=== PATIENT | female | born 1980 | race Caucasian/White ===

== ENCOUNTER 2021-05-09 08:47 | Outpatient (CLI) | payer OTHER, SELFPAY ==
--- NOTE | 2021-05-09 09:08 | ECG_ITS ---
Measurements Intervals [place] Rate: 58 P: 9 UT: 153 QRS: 12 QRSD: 87 T: 6 QT: 410 QTc: 404 Interpretive Statements SINUS BRADYCARDIA LOW QRS VOLTAGE IN PRECORDIAL LEADS BORDERLINE ECG Electronically Signed On 05-09-2021 13:02:19 SLAB STRIPPER by Moy Estrada D.O.
== END 2021-05-09 08:48 | disposition home or self-care (01) ==
PROVIDERS: PCP Family Medicine; Visit Provider Family Medicine
DX: R00.1 Bradycardia, unspecified (principal); E66.9 Obesity, unspecified
CPT/HCPCS: 93005

== ENCOUNTER 2022-06-26 08:22 | Outpatient (CLI) | payer OTHER, SELFPAY ==
[2022-06-26 19:34] LABS: Hematocrit 39.8 % (37.0-47.0); Hemoglobin 12.9 g/dL (12.0-15.0); Mean Corpuscular HGB Conc 32.4 g/dl (32-36); Mean Corpuscular Hemoglobin 31.1 pg (26-34); Mean Corpuscular Volume 95.9 fl (80-100); Mean Platelet Volume 9.3 fl (7.4-10.4); Platelet Count Result 349 k/mm3 (150-375); Red Blood Count 4.15 M/mm3 (4.2-5.4); Red Cell Distribution Width 13.4 % (11.5-14.5); White Blood Count 5.8 K/mm3 (4.5-10.0)
[2022-06-26 20:40] LABS: Alanine Aminotransferase 24 U/L (6-35); Albumin Level 4.3 g/dL (3.5-5.1); Alkaline Phosphatase 53 U/L (38-126); Anion Gap 6 mmol/L (8-16); Aspartate Amino Transferase 34 U/L (14-36); Bilirubin,Total 0.6 mg/dL (0.2-1.3); Blood Urea Nitrogen 12 mg/dL (7-17); Calcium 8.8 mg/dL (8.4-10.2); Carbon Dioxide 28 mmol/L (22-30); Chloride 105 mmol/L (98-107); Cholesterol 150 mg/dL (0-200); Estimated Glomerular Filt Rate > 60; Glucose 94 mg/dL (65-110); HDL Direct 36 mg/dL; Potassium 3.7 mmol/L (3.4-5.0); Sodium 139 mmol/L (137-145); Triglycerides 83 mg/dL (<150)
[2022-06-26 20:51] LABS: LDL Cholesterol Direct 87 mg/dL
== END 2022-06-26 08:23 | disposition home or self-care (01) ==
LOC: ANHBWCLAB 08:22
PROVIDERS: PCP Family Medicine; Visit Provider Family Medicine
DX: Z00.00 Encounter for general adult medical examination without abnormal findings (principal)
CPT/HCPCS: 36415; 80053; 80061; 85027

== ENCOUNTER → 2023-03-24 10:11 | Outpatient (CLI) | payer OTHER, SELFPAY ==
--- NOTE | ~2023-03-24 | MM_ITS ---
EXAMINATION: MM screening jose BI w john HISTORY: Screening mammogram, history of reduction mammoplasty TECHNIQUE: Craniocaudal and mediolateral oblique 3-D tomosynthesis images were obtained and synthetic 2-D images were generated. CAD analysis was submitted and interpreted. COMPARISON: None, baseline BREAST PARENCHYMAL COMPOSITION: The breasts are almost entirely fatty. FINDINGS: RIGHT BREAST: Asymmetry is present in the posterior third lower inner breast 10 cm from the nipple on craniocaudal view. LEFT BREAST: No suspicious mass, calcification, or architectural distortion are identified to suggest malignancy. IMPRESSION: 1. Right breast asymmetry on the craniocaudal view which could be related to prior reduction mammopla sty. 2. Additional mammographic views and possible breast ultrasound are recommended to evaluate the right breast asymmetry and establish a baseline given that this is the first mammographic examination. BI-RADS Category 0: Incomplete: Needs additional imaging evaluation. Reviewed, dictated and finalized at location A. 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 Right breast asymmetry on the craniocaudal view which could be related to pr ior reduction mammoplasty. 2. Additional mammographic views and possible breast ultrasound are recommended to evaluate the right breast asymmetry and establish a baseline given that thi s is the first mammographic examination. BI-RADS Category 0: Incomplete: Needs additional imaging evaluation.
== END ==
PROVIDERS: PCP Family Medicine; Visit Provider Family Medicine
DX: Z12.31 Encounter for screening mammogram for malignant neoplasm of breast (principal); R92.8 Other abnormal and inconclusive findings on diagnostic imaging of breast
CPT/HCPCS: 77063; 77067

== ENCOUNTER 2023-12-31 07:43 | Outpatient (CLI) | payer OTHER, SELFPAY ==
--- NOTE | ~2023-12-31 | MMUS_ITS ---
EXAMINATION: MM diagnostic jose RT w john, US breast RT limited HISTORY: Follow-up right breast asymmetry TECHNIQUE: Additional 3-D tomosynthesis images of the right breast were performed and synthetic 2-D i mages were generated. CAD analysis was submitted and interpreted. High resolution Limited right breas t ultrasound was performed. COMPARISON: 03/24/2023 BREAST PARENCHYMAL COMPOSITION: Not Dense: The breasts are almost entirely fatty. FINDINGS: MAMMOGRAPHIC FINDINGS: Asymmetry medially in the right breast on CC view likely related to previous breast reduction surgery . No discrete mass or suspicious calcifications. No corresponding abnormality on medial lateral image . ULTRASOUND: Limited right breast ultrasound: At 4:00, 9 cm from the nipple there is a benign appearing 9 mm paral lel oriented encapsulated mass without posterior features or internal vascularity, consistent with a lipoma. IMPRESSION: 1. No evidence for malignancy in the right breast. 2. Routine yearly screening mammogram and regular clinical breast examination are recommended. BI-RADS Category 2: Benign finding(s). Reviewed, dictated and finalized at location B. IMPRESSION: 1. No evidence for malignancy in the right breast. 2. Routine yearly screening mammogram and regular clinical breast examination a re recommended. BI-RADS Category 2: Benign finding(s).
== END 2023-12-31 07:44 | disposition home or self-care (01) ==
LOC: MICIMG 07:44
PROVIDERS: PCP Family Medicine; Visit Provider Family Medicine
DX: N64.89 Other specified disorders of breast (principal)
CPT/HCPCS: 76642; 77061; 77065; G0279

== ENCOUNTER 2024-06-05 06:31 | Outpatient (CLI) | payer OTHER, SELFPAY ==
[2024-06-05 20:08] LABS: Hematocrit 40.2 % (37.0-47.0); Hemoglobin 12.6 g/dL (12.0-15.0); Mean Corpuscular HGB Conc 31.3 g/dl (32-36); Mean Corpuscular Hemoglobin 30.7 pg (26-34); Platelet Count Result 396 k/mm3 (150-375); Red Cell Distribution Width 13.8 % (11.5-14.5); White Blood Count 5.9 K/mm3 (4.5-10.0)
[2024-06-05 20:18] LABS: Alanine Aminotransferase 28 U/L (6-35); Albumin Level 4.1 g/dL (3.5-5.1); Alkaline Phosphatase 63 U/L (38-126); Anion Gap 7 mmol/L (4-12); Aspartate Amino Transferase 80 U/L (14-36); Bilirubin,Total 0.4 mg/dL (0.2-1.3); Blood Urea Nitrogen 12 mg/dL (7-17); Carbon Dioxide 29 mmol/L (22-30); Chloride 104 mmol/L (98-107); Cholesterol 148 mg/dL (0-200); Estimated Glomerular Filt Rate > 60; Glucose 81 mg/dL (65-110); HDL Direct 44 mg/dL; Potassium 4.2 mmol/L (3.4-5.0); Sodium 140 mmol/L (137-145); Triglycerides 72 mg/dL (<150)
[2024-06-05 20:29] LABS: LDL Cholesterol Direct 76 mg/dL
[2024-06-05 20:48] LABS: Free T4 Free Thyroxine 0.84 ng/dL (0.78-2.19)
== END 2024-06-05 06:32 | disposition home or self-care (01) ==
LOC: ANHBWCLAB 06:31
PROVIDERS: PCP Nurse Practitioner Adult Health; Visit Provider Nurse Practitioner Adult Health
DX: Z13.9 Encounter for screening, unspecified (principal)
CPT/HCPCS: 36415; 80053; 80061; 83036; 84439; 84443; 85027

== ENCOUNTER 2024-07-10 06:35 | Outpatient (CLI) | payer OTHER, SELFPAY ==
[2024-07-10 19:53] LABS: Alanine Aminotransferase 29 U/L (6-35); Albumin Level 3.9 g/dL (3.5-5.1); Alkaline Phosphatase 57 U/L (38-126); Aspartate Amino Transferase 57 U/L (14-36); Bilirubin,Total 0.5 mg/dL (0.2-1.3)
== END 2024-07-10 06:36 | disposition home or self-care (01) ==
LOC: ANHBWCLAB 06:37
PROVIDERS: PCP Nurse Practitioner Adult Health; Visit Provider Nurse Practitioner Adult Health
DX: R74.8 Abnormal levels of other serum enzymes (principal)
CPT/HCPCS: 36415; 80076

== ENCOUNTER 2024-11-16 13:01 | Emergency (ER) | payer OTHER, SELFPAY ==
--- OUTSIDE RECORDS SUMMARY | 2019-04-14 08:00 | XMS_ITS | Continuity of Care Document ---
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 Referring Provider: Physician Screen. Family [...]
[2024-11-16 13:07] VITALS: BP 124/70; PULSE 123; RESP 24; TEMP 36.7; O2SAT 100
--- NOTE | 2024-11-16 13:10 | ED.ABDPAIN ---
HPI - Abdominal Pain General Chief Complaint: Abdominal Pain Stated Complaint: abdominal pain Time Seen by Provider: 11/16/24 13:11 Source: patient and RN notes reviewed Mode of arrival: ambulatory Limitations: no limitations History of Present Illness HPI narrative: 44 y/o female presented for c/o lower abdominal pain, onset 0430. Reports a hard stool, then a diarrhea stool, then just blood over the last hour. Says she has a constant dull pain, with intermittent 'knife stabbing' pains rating 10/10. Endorses nausea. Denies vomiting. Took pepto at 1100. Hx hysterectomy. Related Data Allergies Allergy/AdvReac Type Severity Reaction Status Date / Time No Known Allergies Allergy Verified 11/16/24 13:12 Review of Systems Review of Systems: CONSTITUTIONAL: Denies body aches, fever, chills ENT: Denies rhinorrhea, congestion CARDIOVASCULAR: Denies chest pain, palpitations, or edema. RESPIRATORY: Denies cough or dyspnea. GASTROINTESTINAL: Endorses abdominal pain, nausea, diarrhea, hematochezia GENITOURINARY: Denies dysuria, hematuria, or CVA tenderness. SKIN: Denies rash MUSCULOSKELETAL: Denies back pain, joint pain, or myalgia. NEUROLOGIC: Denies headache, numbness, tingling, or weakness. All systems reviewed & are unremarkable except as noted in HPI and below PMFSH Past Medical History Medical History Allergies Anxiety H/O migraine Surgical History Surgical History H/O bilateral breast reduction surgery H/O section History of nasal surgery History of partial hysterectomy Family History Family History Father Diabetes mellitus Skin cancer Alcohol abuse Mother Asthma Sibling Asthma Anxiety Depression Grandparent Brain cancer Lung cancer Grandparent Diabetes mellitus Social History Social History Smoking status: Never smoker Alcohol intake: current Drinks per week: 2 Substance use type: does not use Lack of Transportation: No Lack of Food: Never True Current Housing: I Have Housing Concerned About Future Housing: No Difficulty Paying Gas/Electric Bills: No Difficulty Paying for Meds: No Currently Unemployed: No Education: Master's Degree or Higher Difficulty w/ Childcare or Family Care: No Living arrangements: with family 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 Please see nursing chart for further information. There is no relevant family history pertinent to the presenting complaint Exam Narrative: GENERAL: appears in pain ENT: Mucous membranes pink and moist. CHEST: No respiratory distress. Clear to auscultation. HEART: Regular rate and rhythm. No murmur appreciated. Normal peripheral pulses. ABDOMEN: abd soft, nondistended, normal active bowel sounds. Tender lower abdomen with guarding, no rebound tenderness, asymmetry SKIN: Warm, dry, no rash. Capillary refill normal. NEURO: No focal deficits. Alert and oriented x3. PSYCH: Normal affect. Course Course Emergency Course: Patient is aware of diagnosis, understands and agrees to treatment plan. Anticipatory guidance given. Patient agrees to follow-up as directed and is aware of reasons to seek care at the emergency department. Portions of this record may have been created with voice recognition software Level of Care: Express Care Visit Transfer Transfered to: [place] Transportation: Other ( private vehicle) Transfer rationale: Pt is agreeable to transfer. Requests transfer to [facility] via private vehicle. Risks of transportation reviewed with pt including injury, worsening of condition and . v/u. will be driving pt; Report called to hospital, spoke with Dr Gunn, accepting physician. Pt is in stable condition at time of transfer. Advised to remain NPO and go directly to the hospital. MDM - Abdominal Pain MDM Narrative Medical decision making narrative: Patient with reports of severe abdominal pain and blood in the stool today. Advised ER transfer. Differential Diagnosis Differential diagnosis: Likely abdominal pain, acute appendicitis, diverticulitis, gastroenteritis, pancreatitis, small bowel obstruction and other (hemorrhoid, IBS, colitis, fistula, fissure) Discharge Plan Discharge Clinical Impression: GI (gastrointestinal bleed) Patient Disposition: Acute Care Hospital Condition: Stable Patient Language: Turkish Prescriptions: No Action phentermine 37.5 mg tablet 37.5 mg PO DAILY Qty: 30 1RF Rx Instructions: must administer 30 minutes before or 1-2 hours after breakfast albuterol sulfate 90 mcg/actuation HFA aerosol inhaler 1 inh inhalation Q4H PRN (Reason: shortness of breath or wheezing) Qty: 8.5 5RF topiramate 25 mg tablet See Rx Instructions .ROUTE .COMPLEX Qty: 90 3RF Dose Instruction: TAKE 1 TABLET BY MOUTH DAILY Rx Instructions: TAKE 1 TABLET BY MOUTH DAILY Follow-up/Referrals: Rhianna Amaya APRN [Primary Care Provider, Family Practice] Time of Disposition: 13:27
== END 2024-11-16 13:32 | disposition short-term general hospital (02) ==
PROVIDERS: Emergency Provider Nurse Practitioner Family; PCP Nurse Practitioner Adult Health
DX: K92.2 Gastrointestinal hemorrhage, unspecified (principal)
CPT/HCPCS: 99212; G0463

== ENCOUNTER 2024-11-16 13:56 | Emergency (ER) | payer OTHER, SELFPAY ==
--- OUTSIDE RECORDS SUMMARY | 2019-04-14 08:00 | XMS_ITS | Continuity of Care Document ---
Author Organization [facility] Address [address] [place] [address] Rd [address] [place] [address] Phone Care Team Providers Care Reweaver Name Role Phone Janes PT,MPT,ATC, Dutch Unavailable Unavai lable Procedures Procedure Date Free Assessment Advance Directives Directive Yes / No Effective Date File Name No Information Encounters Encounter Description Practice Location Reason(s) For Visit Diagnoses Date Provider Providers Copied on Encounter [facility], [address] [place], [place] [id number], [place], [place], [id number], [place] tel:[phone] [employer] No Information 0 Janes Lazo [place], [place], [place]. Referring Provider: Physician Screen. Family History Family Member Type Diagnosis Age At Onset No Information Payers Payer name Insurance type Covered republican ID Authoriza tion(s) No Information Social History Type Description Quantity Date Captured Comments Sex Female Smoking Status No Information Chief Complaint And Reason For Visit No Information Reason For Referral Reason For Referral No Information History Of Present Illness Encounter Date Complaint History Of Prese nt Illness No Information Functional Status Date Functional Assessmen t No Information Instructions Date Instruction Additional Infor mation No Information Assessments Type Assessment Date No Information Patient Care Teams Name Effective Dates (start - stop) Status Members No Information
--- NOTE | ~2024-11-16 | CT_ITS ---
EXAMINATION: CT abdomen pelvis w con DATE: 11/16/2024 18:59 INDICATION: Abdominal pain and rectal bleeding TECHNIQUE: Computed tomography (CT) of the abdomen and pelvis was performed with 100 mL Omnipaque-350 intravenous contrast. Automated exposure control and iterative reconstruction technique were employed. The dose-length product was 567.83 mGy-cm. COMPARISON: None FINDINGS: Lung bases are clear. Heart size is normal. No pericardial or pleural effusion. Liver, gallbladder, spleen, pancreas, bilateral adrenal glands and kidneys are normal. Small fat-containing umbilical hernia. Small bowel and appendix are normal. There is extensive wall thickening along the descending and proximal sigmoid colon with associated hyperemia to vasa recta consistent with colitis which could be infectious or inflammatory in etiology. Contrast-enhanced mesenteric vessels are seen extending along the length of the affected colon arguing against ischemia. The uterus is not identified and has likely been surgically resected. Bladder and bilateral adnexa are unremarkable. Minimal amount of likely reactive or physiologic free fluid in the pelvis. No abscess or free intraperitoneal gas. No pathologically enlarged abdominal or pelvic lymphadenopathy. Mild scattered degenerative skeletal changes in the spine and pelvis. IMPRESSION: 1. Descending and proximal sigmoid colitis, most likely infectious or inflammatory in etiology. Reviewed, dictated and finalized at location A. IMPRESSION: 1. Descending and proximal sigmoid colitis, most likely infectious or inflammat ory in etiology.
[2024-11-16 14:28] VITALS: BP 115/75; PULSE 116; RESP 18; TEMP 36.6; O2SAT 100
--- NOTE | 2024-11-16 17:42 | ED_ITS ---
HPI - General Adult General Chief complaint: Abdominal Pain Stated complaint: abd pain Time Seen by Provider: 11/16/24 17:12 History of Present Illness HPI narrative: 44-year-old female presents to the emergency department for evaluation for lower abdominal pain and rectal bleeding. Patient states she woke up this morning had a large formed bowel movement then had a diarrhea stool and then began passing blood rectally. Patient describes left lower quadrant and suprapubic abdominal pain. Patient denies any urinary symptoms. Patient does have a prior history of a hysterectomy Related Data Allergies Allergy/AdvReac Type Severity Reaction Status Date / Time No Known Allergies Allergy Verified 11/16/24 13:12 Review of Systems 2 Review of Systems: All systems reviewed & are unremarkable except as noted in HPI and below PMFSH Past Medical History Medical History Allergies Anxiety H/O migraine Surgical History Surgical History H/O bilateral breast reduction surgery H/O section History of nasal surgery History of partial hysterectomy Family History Family History Father Diabetes mellitus Skin cancer Alcohol abuse Mother Asthma Sibling Asthma Anxiety Depression Grandparent Brain cancer Lung cancer Grandparent Diabetes mellitus Social History Social History Smoking status: Never smoker Alcohol intake: current Drinks per week: 2 Substance use type: does not use Lack of Transportation: No Lack of Food: Never True Current Housing: I Have Housing Concerned About Future Housing: No Difficulty Paying Gas/Electric Bills: No Difficulty Paying for Meds: No Currently Unemployed: No Education: Master's Degree or Higher Difficulty w/ Childcare or Family Care: No Living arrangements: with family 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 HEAD: normocephalic, atraumatic. EYES: PERRLA/EOMI, conjunctivae clear. NOSE: Normal no drainage EARS:TMS clear with good light reflex. THROAT: Pharynx clear, no exudate. NECK: Supple. No adenopathy, no masses. RESPIRATORY: Airway patent, respirations nonlabored. Clear to auscultation bilaterally, no rales, rhonchi, wheezing. CARDIOVASCULAR: Regular rate and rhythm without murmurs rubs or gallops. ABDOMINAL: Left lower quadrant suprapubic abdominal pain MUSCULOSKELETAL: Moves all extremities. Strength/ROM intact, No edema, No calf tenderness. NEURO: Alert. Cranial nerves II through XII intact. Good gait. Good coordination SKIN: Warm, dry. Normal Color Course Vital Signs Vital signs: Vital Signs Temperature 97.9 F 11/16/24 14:28 Pulse Rate 116 H 11/16/24 14:28 Respiratory Rate 18 11/16/24 14:28 Blood Pressure 115/75 11/16/24 14:28 Pulse Oximetry 100 11/16/24 14:28 Oxygen Delivery Room Air 11/16/24 14:28 Temperature 97.9 F 11/16/24 14:28 Pulse Rate 96 11/16/24 18:45 Respiratory Rate 15 11/16/24 18:45 Blood Pressure 108/73 11/16/24 18:45 Pulse Oximetry 100 11/16/24 18:45 Oxygen Delivery Room Air 11/16/24 14:28 Medical Decision Making MDM Narrative Medical decision making narrative: 44-year-old female presents emergency department for evaluation for lower abdominal pain and bloody stool. Patient is currently afebrile with no leukocytosis hemoglobin of 12.8. Patient has an INR of 1.0. No acute abnormalities on her CMP At time of sign-out C diff is pending along with CT abdomen pelvis. Vital Signs Vital Signs: Vital Signs Temperature 97.9 F 11/16/24 14:28 Pulse Rate 116 H 11/16/24 14:28 Respiratory Rate 18 11/16/24 14:28 Blood Pressure 115/75 11/16/24 14:28 Pulse Oximetry 100 11/16/24 14:28 Oxygen Delivery Room Air 11/16/24 14:28 Temperature 97.9 F 11/16/24 14:28 Pulse Rate 96 11/16/24 18:45 Respiratory Rate 15 11/16/24 18:45 Blood Pressure 108/73 11/16/24 18:45 Pulse Oximetry 100 11/16/24 18:45 Oxygen Delivery Room Air 11/16/24 14:28 Lab Data 11/16/24 17:44 11/16/24 17:45 Labs: Lab Results 11/16/24 11/16/24 11/16/24 Range/Units 17:44 17:45 18:21 WBC 9.0 (4.5-10.0) K/mm3 RBC 4.22 (4.2-5.4) M/mm3 Hgb 12.8 (12.0-15.0) g/dL Hct 38.5 (37.0-47.0) % MCV 91.2 (80-100) fl MCH 30.3 (26-34) pg MCHC 33.2 (32-36) g/dl RDW 13.2 (11.5-14.5) % Plt Count 318 (150-375) k/mm3 MPV 8.5 (7.4-10.4) fl Immature Gran % (Auto) 0.3 (0-0.5) % Neut % (Auto) 83.6 H (45.5-73.1) % Lymph % (Auto) 5.5 L (18.3-44.2) % [place] % (Auto) 9.7 H (2.6-8.5) % Eos % (Auto) 0.1 (0-4.4) % Baso % (Auto) 0.8 (0.2-1.2) % Lymph # (Auto) 0.50 L (0.9-3.2) K/mm3 [place] # (Auto) 0.9 H (0.1-0.6) K/mm3 Eos # (Auto) 0.0 (0-0.3) K/mm3 Baso # (Auto) 0.1 (0.0-0.1) K/mm3 Abs Immat Gran (auto) 0.03 (0.00-0.031) K/mm3 Absolute Neuts (auto) 7.5 H (1.3-6.7) K/mm3 Absolute Nucleated RBC 0.000 (0.0-0.012) K/mm3 Nucleated RBC % 0.0 (0.0-0.2) % PT 13.7 (11.1-14.7) Seconds INR 1.0 APTT 28.5 (22.3-36.8) Seconds Sodium 136 L (137-145) mmol/L Potassium 3.7 (3.4-5.0) mmol/L Chloride 102 (98-107) mmol/L Carbon Dioxide 25 (22-30) mmol/L Anion Gap 9 (4-12) mmol/L BUN 11 (7-17) mg/dL Creatinine 0.76 (0.7-1.0) mg/dL Estim Creat Clear Calc 77 ml/min Estimated GFR > 60 (59 - ) Glucose 109 (65-110) mg/dL Lactic Acid 1.3 (0.7-2.0) mmol/L Calcium 9.0 (8.4-10.2) mg/dL Total Bilirubin 0.6 (0.2-1.3) mg/dL AST 76 H (14-36) U/L ALT 105 H (6-35) U/L Alkaline Phosphatase 73 (38-126) U/L Total Protein 7.5 (6.3-8.2) g/dL Albumin 4.0 (3.5-5.1) g/dL Lipase 48 (23-300) U/L C. difficile (PCR) Negative (NEGATIVE) Discharge Plan Discharge Clinical Impression: Abdominal pain, Bloody stool, Colitis Patient Disposition: Home Condition: Stable Instructions: Antibiotic Form, Abdominal Pain (ED), Colitis (ED) Additional Instructions: Please follow-up with your primary care provider. If you develop worsening pain if you develop high fevers please return to the emergency department for re- evaluation Patient Language: Irish Prescriptions: New ciprofloxacin HCl [Cipro] 500 mg tablet 500 mg PO Q12H Qty: 20 0RF hydrocodone-acetaminophen 5-325 mg tablet 1 tablet PO Q6H PRN (Reason: pain) 3 Days Qty: 12 0RF metronidazole 500 mg tablet 500 mg PO Q8H 10 Days Qty: 30 0RF ondansetron 4 mg tablet,disintegrating 4 mg PO Q8H PRN (Reason: nausea and vomiting) Qty: 10 0RF No Action phentermine 37.5 mg tablet 37.5 mg PO DAILY Qty: 30 1RF Rx Instructions: must administer 30 minutes before or 1-2 hours after breakfast albuterol sulfate 90 mcg/actuation HFA aerosol inhaler 1 inh inhalation Q4H PRN (Reason: shortness of breath or wheezing) Qty: 8.5 5RF topiramate 25 mg tablet See Rx Instructions .ROUTE .COMPLEX Qty: 90 3RF Dose Instruction: TAKE 1 TABLET BY MOUTH DAILY Rx Instructions: TAKE 1 TABLET BY MOUTH DAILY Follow-up/Referrals: Rhianna Amaya APRN [Primary Care Provider, [facility]] Time of Disposition: 21:30
[2024-11-16 17:53] LABS: Hematocrit 38.5 % (37.0-47.0); Hemoglobin 12.8 g/dL (12.0-15.0); Immature Granulocyte Percent A 0.3 % (0-0.5); Lymphocytes Absolute Auto 0.50 K/mm3 (0.9-3.2); Mean Corpuscular HGB Conc 33.2 g/dl (32-36); Mean Corpuscular Hemoglobin 30.3 pg (26-34); Mean Corpuscular Volume 91.2 fl (80-100); Nucleated Red Blood Cells Absolute Auto 0.000 K/mm3 (0.0-0.012); Nucleated Red Blood Cells Perc 0.0 % (0.0-0.2); Platelet Count Result 318 k/mm3 (150-375); Red Blood Count 4.22 M/mm3 (4.2-5.4); White Blood Count 9.0 K/mm3 (4.5-10.0)
[2024-11-16 18:07] LABS: INR 1.0; Partial Thromboplastin Time 28.5 Seconds (22.3-36.8); Prothrombin Time 13.7 Seconds (11.1-14.7)
[2024-11-16 18:08] LABS: Alanine Aminotransferase 105 U/L (6-35); Albumin Level 4.0 g/dL (3.5-5.1); Alkaline Phosphatase 73 U/L (38-126); Anion Gap 9 mmol/L (4-12); Aspartate Amino Transferase 76 U/L (14-36); Bilirubin,Total 0.6 mg/dL (0.2-1.3); Blood Urea Nitrogen 11 mg/dL (7-17); Calcium 9.0 mg/dL (8.4-10.2); Carbon Dioxide 25 mmol/L (22-30); Chloride 102 mmol/L (98-107); Estimated CRCL calculation 77 ml/min; Estimated Glomerular Filt Rate > 60; Glucose 109 mg/dL (65-110); Lipase 48 U/L (23-300); Potassium 3.7 mmol/L (3.4-5.0); Sodium 136 mmol/L (137-145); Total Protein 7.5 g/dL (6.3-8.2)
[2024-11-16] MEDS: LACTATED RINGERS 1,000 ML 999 ML IV CONT (18:12)
[2024-11-16] MEDS: ONDANSETRON INJ 4 MG/2 ML VIAL IV PUSH (18:13)
[2024-11-16] MEDS: HYDROmorphone HCL INJ (*CRX) 1 MG/ML SYR 0.5 MG IV PUSH (18:13)
[2024-11-16 18:28] VITALS: BP 92/67; PULSE 102; RESP 13; O2SAT 100
[2024-11-16 18:30] VITALS: BP 91/59; PULSE 99; RESP 11; O2SAT 99
[2024-11-16 18:45] VITALS: BP 108/73; PULSE 96; RESP 15; O2SAT 100
[2024-11-16 19:18] LABS: Toxigenic C. Diff NEGATIVE (NEGATIVE)
[2024-11-16] MEDS: CIPROFLOXACIN 500 MG TAB PO (21:35)
== END 2024-11-16 21:42 | disposition home or self-care (01) ==
PROVIDERS: Emergency Provider Emergency Medicine; PCP Nurse Practitioner Adult Health
DX: K52.9 Noninfective gastroenteritis and colitis, unspecified (principal); K92.1 Melena; Z90.711 Acquired absence of uterus with remaining cervical stump
CPT/HCPCS: 36415; 74177; 80053; 83605; 83690; 85025; 85610; 85730; 87493; 96361; 96374; 96375; 99284; A9270; J1171; J2405; J7120; Q9967

== ENCOUNTER 2025-01-27 08:07 | Outpatient (CLI) | payer OTHER, SELFPAY ==
[2025-01-27 18:48] LABS: Alanine Aminotransferase 33 U/L (6-35); Albumin Level 4.3 g/dL (3.5-5.1); Alkaline Phosphatase 61 U/L (38-126); Anion Gap 7 mmol/L (4-12); Aspartate Amino Transferase 63 U/L (14-36); Bilirubin,Total 0.5 mg/dL (0.2-1.3); Blood Urea Nitrogen 12 mg/dL (7-17); Calcium 8.7 mg/dL (8.4-10.2); Carbon Dioxide 27 mmol/L (22-30); Chloride 104 mmol/L (98-107); Cholesterol 205 mg/dL (0-200); Estimated Glomerular Filt Rate > 60; Glucose 82 mg/dL (65-110); HDL Direct 48 mg/dL; Potassium 4.1 mmol/L (3.4-5.0); Sodium 138 mmol/L (137-145); Total Protein 7.8 g/dL (6.3-8.2); Triglycerides 100 mg/dL (<150)
[2025-01-27 18:52] LABS: Hemoglobin A1C 5.2 % (<5.7)
[2025-01-27 19:14] LABS: Hematocrit 42.4 % (37.0-47.0); Hemoglobin 13.2 g/dL (12.0-15.0); Mean Corpuscular HGB Conc 31.1 g/dl (32-36); Mean Corpuscular Hemoglobin 30.0 pg (26-34); Mean Corpuscular Volume 96.4 fl (80-100); Platelet Count Result 391 k/mm3 (150-375); Red Blood Count 4.40 M/mm3 (4.2-5.4); White Blood Count 5.8 K/mm3 (4.5-10.0)
[2025-01-27 19:18] LABS: Thyroid Stimulating Hormone 1.710 uIU/mL (0.465-4.680)
== END 2025-01-27 08:08 | disposition home or self-care (01) ==
LOC: ANHBWCLAB 08:08
PROVIDERS: PCP Nurse Practitioner Adult Health; Visit Provider Nurse Practitioner Adult Health
DX: Z00.00 Encounter for general adult medical examination without abnormal findings (principal); R74.8 Abnormal levels of other serum enzymes; E66.9 Obesity, unspecified; R53.83 Other fatigue
CPT/HCPCS: 36415; 80048; 80061; 80076; 82306; 83036; 84443; 85027